=== PATIENT | female | born 1975 | race Caucasian/White ===

== ENCOUNTER 2017-02-19 07:08 | Outpatient (CLI) | payer BC ==
[2017-02-19 09:41] LABS: #Basophils 0.1 thou/uL (0.0-0.2); #Eosinphils 0.1 thou/uL (0.0-0.7); #Lymphocytes 2.9 thou/uL (1.20-3.40); #Monocytes 0.6 thou/uL (0.11-0.59); %Eosinophils 1.2 % (0.0-10.0); %Lymphocytes 33.4 % (21.0-51.0); %Monocytes 6.9 % (0.0-10.0); %Neutrophils 57.6 % (42.0-75.0); Hemoglobin 13.6 g/dL (12.0-16.0); Mean Corpuscular HGB CONC 32.7 g/dL (32.0-36.0); Mean Corpuscular Hemoglobin 30.5 pg (27.0-31.0); Mean Corpuscular Volume 93.3 fl (81.0-99.0); Mean Platelet Volume 9.2 fL (7.4-10.4); Platelet Count 214 thou/uL (130-400); RBC Distribution Width 12.1 % (11.5-14.5); Red Blood Cell (RBC) Count 4.45 mill/uL (4.20-5.40); White Blood Cell (WBC) Count 8.8 thou/uL (4.8-10.8)
[2017-02-19 10:21] LABS: ALT (SGPT) 16 U/L (8-55); AST (SGOT) 16 U/L (5-34); Alkaline Phosphatase 57 U/L (40-150); Anion Gap 11 mmol/L (10-20); BUN (Urea Nitrogen) 13 mg/dL (7.0-18.7); Bilirubin, Total 0.7 mg/dL (0.2-1.2); Calc. Creatinine Clearance 0 mL/min (70-130); Calcium 9.2 mg/dL (7.8-10.44); Carbon Dioxide 28 mmol/L (22-29); Chloride 106 mmol/L (98-107); Estimated GFR-MDRD 83; Glucose 81 mg/dL (70-105); Potassium 4.2 mmol/L (3.5-5.1); Sodium 141 mmol/L (136-145)
[2017-02-19 14:08] LABS: Cardiac Risk 2.4 (Less than 4.5); Cholesterol 161 mg/dl (< 200 Desired); HDL Cholesterol 66 mg/dL (>60 Neg Risk); LDL Cholesterol, Calculated 73 mg/dL; Triglycerides 110 mg/dL (Less than 150)
== END 2017-02-19 07:09 | disposition home or self-care (01) ==
LOC: BURLAB 07:08
PROVIDERS: ATTEND Family Medicine
DX: E55.9 Vitamin D deficiency, unspecified (principal); E53.8 Deficiency of other specified B group vitamins; E78.00 Pure hypercholesterolemia, unspecified; Z98.84 Bariatric surgery status
CPT/HCPCS: 80053; 80061; 82306; 82607; 85025

== ENCOUNTER 2017-04-09 12:11 | Outpatient (CLI) | payer BC | END 2017-04-09 12:12 | disposition home or self-care (01) | LOC: BURLAB 12:11 | PROVIDERS: ATTEND Surgery | DX: R53.83 Other fatigue (principal) | CPT/HCPCS: 36415; 84425 ==

== ENCOUNTER 2019-07-02 15:18 | Outpatient (CLI) | payer OTHER ==
--- NOTE | 2019-07-02 16:36 | RAD ---
CERVICAL SPINE 07/02/19 AP, open mouth and lateral views are provided. No fracture, dislocation, or soft tissue swelling was seen. The C1 to dens distance is normal. There is slight disc space narrowing at C2-C3 that may be congenital. Areas perhaps very minor narrow ing at C4-C5 and a little bony spurring anteriorly at C5. Overall, the findings are not remarkable. IMPRESSION: No acute traumatic finding. POS: HOME
--- NOTE | 2019-07-02 16:37 | RAD ---
RIGHT SHOULDER THREE VIEWS 07/02/19 No fracture, dislocation, or AC joint widening was seen. The adjacent lung appears clear. The visible adjacent ribs appear intact. IMPRESSION: No acute findings. POS: HOME
== END 2019-07-02 15:19 | disposition home or self-care (01) ==
LOC: BURRAD 15:18
PROVIDERS: ATTEND Family Medicine
DX: M25.511 Pain in right shoulder (principal)
CPT/HCPCS: 72040

== ENCOUNTER 2023-05-12 17:13 | Emergency (ER) | payer BC, SELFPAY ==
[2023-05-12] MEDS ORDERED: Lidocaine 1% PF 5 ML VIAL ONE (18:09)
== END 2023-05-12 18:50 | disposition home or self-care (01) ==
LOC: BURERS 17:13
DX: L03.032 Cellulitis of left toe (principal); I10 Essential (primary) hypertension; I42.8 Other cardiomyopathies
CPT/HCPCS: 10060

== ENCOUNTER 2025-04-22 16:06 | Emergency (ER) | payer OTHER, SELFPAY ==
[2025-04-22 16:36] LABS: #Basophils 0.1 thou/uL (0.0-0.2); #Eosinophils 0.0 thou/uL (0.0-0.7); #Lymphocytes 1.9 thou/uL (1.20-3.40); #Monocytes 0.8 thou/uL (0.11-0.59); #Neutrophils 4.4 thou/uL (1.40-6.50); %Basophils 1.5 % (0.0-1.0); %Eosinophils 0.7 % (0.0-10.0); %Lymphocytes 25.8 % (21.0-51.0); %Monocytes 10.6 % (0.0-10.0); %Neutrophils 61.5 % (42.0-75.0); Hematocrit 38.0 % (36.0-47.0); Hemoglobin 13.1 g/dL (12.0-16.0); Mean Corpuscular Hemoglobin 29.5 pg (27.0-31.0); Mean Corpuscular Volume 85.8 fl (78.0-98.0); Platelet Count 217 10x3/uL (130-400); Red Blood Cell (RBC) Count 4.43 mill/uL (4.20-5.40); White Blood Cell (WBC) Count 7.2 10x3/uL (4.8-10.8)
[2025-04-22] MEDS ORDERED: Ondansetron PF 4 MG/2 ML Vial ONE (16:48)
[2025-04-22 16:54] LABS: ALT (SGPT) 15 U/L (Less than 34); AST (SGOT) 24 U/L (11-34); Albumin 3.7 g/dL (3.1-4.5); Alkaline Phosphatase 86 U/L (40-110); Anion Gap 17 mmol/L (10-20); BUN (Urea Nitrogen) 10 mg/dL (7.0-18.7); Bilirubin, Total 0.5 mg/dL (0.3-1.2); Calc. Creatinine Clearance 0 mL/min (70-130); Calcium 9.4 mg/dL (7.8-10.44); Carbon Dioxide 19 mmol/L (22-29); Chloride 106 mmol/L (98-107); Globulin 4.0 g/dL (2.4-3.5); Glucose 118 mg/dL (70-105); Lipase 16 U/L (8-78); Potassium 3.3 mmol/L (3.5-5.1); Sodium 139 mmol/L (136-145)
[2025-04-22 17:53] LABS: Glucose, Urine (Dipstick) Negative (Negative); Leukocyte Trace (Negative); Protein, Urine (Dipstick) Negative (Neg-Trace); Specific Gravity, Urine 1.010 (1.005-1.030)
[2025-04-22 17:55] LABS: Pregnancy Test - Urine (BHCG) Negative (Negative); Pregu Control Background? CLEAR/WHITE (CLR/WHITE); Pregu Control Bar Appear? YES (CONTROL BAR)
[2025-04-22 17:58] LABS: Bacteria/HPF 1+ HPF (None Seen); CAUTI Indications for Culture Dysuria,urgency,freq; RBC/HPF None Seen HPF (0-3); WBC/HPF 0-3 HPF (0-3)
[2025-04-22 18:00] LABS: Urine Culture Reflex No No
== END 2025-04-22 20:08 | disposition home or self-care (01) ==
LOC: BURERS 16:06
DX: N28.89 Other specified disorders of kidney and ureter (principal); R19.7 Diarrhea, unspecified; I10 Essential (primary) hypertension
CPT/HCPCS: 74177; 80053; 81001; 81025; 83690; 85025; 96361; 96374; J2405